=== PATIENT | male | born 1960 | race Caucasian/White ===

== ENCOUNTER 2016-12-11 05:43 | Day surgery (SDC) | payer MEDICAID ==
[2016-12-11] MEDS ORDERED: LIDOCAINE 1% 2 ML INJ ONE (06:02)
[2016-12-11] MEDS ORDERED: LR 1,000 ML IV ONE (06:24)
[2016-12-11] MEDS ORDERED: LIDOCAINE 1% 2 ML INJ ID PRN (06:24)
--- NOTE | 2016-12-11 06:51 | PDANEPAE ---
ANE History of Present Illness 56 year old male with Right Inguinal Hernia with preventive Left Inguinal Hernia Repair and Umbilical hernia. History of NIDDM on metformin and glipizide. Otherwise healthy. Denies Heart difficulties. 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 He cycles 10 miles per day. He has anesthesia in the past without complications. ANE Past Medical History - Cardiovascular History Hx Hypertension: Yes Hx Arrhythmias: No Hx Chest Pain: No Hx Coronary Artery / Peripheral Vascular Disease: No Hx CHF / Valvular Disease: No Hx Palpitations: No Cardiovascular History Comment: on Lisinopril for kidney perfusion - Pulmonary History Hx COPD: No Hx Asthma/Reactive Airway Disease: No Hx Recent Upper Respiratory Infection: No Hx Oxygen in Use at Home: No Hx Sleep Apnea: No Sleep Apnea Screening Result - Last Documented: Negative - Neurologic History Hx Cerebrovascular Accident: No Hx Seizures: No Hx Dementia: No - Endocrine History Hx Diabetes: Yes Obesity: yes, moderate Endocrine History Comment: NIDDM -stable HgbA1C 5.7 - Renal History Hx Renal Disorders: Yes Renal History Comment: hx kidney stones - Liver History Hx Hepatic Disorders: No - Neurological & Psychiatric Hx Hx Neurological and Psychiatric Disorders: No - Cancer History Hx Cancer: No - Congenital Disorder History Hx Congenital Disorders: No - GI History GERD: mild Hx Gastrointestinal Disorders: Yes Gastrointestinal History Comment: umbilical hernia- bilat inguinal hernias - Other Health History Other Health History: OA elbows - Chronic Pain History Chronic Pain: No - Surgical History Prior Surgeries: ureteroscopy (stent) kidney stone- 02-10-2016. kidney stone appro 2006. R ankle sx. hardware removal ANE Review of Systems - Exercise capacity METS (RN): 5 METS ANE Patient History - Allergies Allergies/Adverse Reactions: No Known Allergies Allergy (Verified 12/09/16 11:15) - Home Medications Home Medications: Aspirin [Aspirin 81mg (*)] 81 mg PO DAILY 02/10/16 [Last Taken 12/09/16] Metformin HCl [Metformin 1000 mg] 1,000 mg PO BID 02/10/16 [Last Taken 12/10/16 12:00] GLIPIZIDE 12/09/16 [Last Taken 12/10/16 12:00] Lisinopril 12/09/16 [Last Taken 12/10/16 12:00] Meloxicam 12/09/16 [Last Taken 12/09/16] Potassium Citrate 12/09/16 [Last Taken 12/10/16 12:00] - NPO status NPO Since - Liquids (Date): 12/10/16 NPO Since - Liquids (Time): 22:00 NPO Since - Solids (Date): 12/10/16 NPO Since - Solids (Time): 20:00 - Smoking Hx Smoking Status: Never smoked ANE Labs/Vital Signs - Vital Signs Blood Pressure: 117/85 Heart Rate: 66 Respiratory Rate: 20 O2 Sat (%): 95 Height: 177.8 cm Weight: 102.058 kg ANE Physical Exam - Airway Mallampati Score: Class 1 Mouth exam: poor dentition - Pulmonary Pulmonary: no respiratory distress - Cardiovascular Cardiovascular: regular rate and rhythym - ASA Status ASA Status: II ANE Anesthesia Plan Anesthesia Plan: general endotracheal anesthesia Urgent/Emergent Case: Antione santos completed preop but documented later for safe timely pt care
[2016-12-11] MEDS ORDERED: LIDOCAINE 1% 300 MG/30 ML SDV ONE (06:59)
[2016-12-11] MEDS ORDERED: BUPIVACAINE 0.5% 30 ML SDV ONE (07:00)
[2016-12-11] MEDS ORDERED: HYDROmorphONE/DILAUDID 2 MG/ML INJ ONE (07:02)
[2016-12-11] MEDS ORDERED: ONDANSETRON 4 MG/2 ML VIAL ONE (07:02)
[2016-12-11] MEDS ORDERED: DEXAMETHASONE 4 MG/ML VIAL ONE (07:02)
[2016-12-11] MEDS ORDERED: fentaNYL 100 MCG/2 ML INJ ONE ×2 (07:02→09:01)
[2016-12-11] MEDS ORDERED: ROCURONIUM 50 MG/5 ML VIAL ONE (07:02)
[2016-12-11] MEDS ORDERED: MIDAZOLAM 2 MG/2 ML VIAL ONE ×2 (07:03→07:10)
[2016-12-11] MEDS ORDERED: PROPOFOL 200 MG/20 ML VIAL ONE (07:03)
[2016-12-11] MEDS ORDERED: HYDROCODONE/APAP 5/325 TAB PO PRN (07:44)
[2016-12-11] MEDS ORDERED: METOCLOPRAMIDE 10 MG/2 ML VIAL IVP PRN (07:44)
[2016-12-11] MEDS ORDERED: NALOXONE HCL 0.4 MG/ML INJ IVP PRN (07:44)
[2016-12-11] MEDS ORDERED: LR 500 ML IV PRN (07:44)
[2016-12-11] MEDS ORDERED: HYDROmorphONE/DILAUDID 1 MG/ML SYR IVP PRN (07:44)
[2016-12-11] MEDS ORDERED: ONDANSETRON 4 MG/2 ML VIAL IVP PRN (07:44)
[2016-12-11] MEDS ORDERED: MEPERIDINE 25 MG/ML SYR IVP PRN (07:44)
[2016-12-11] MEDS ORDERED: oxyCODONE IR 5 MG TAB PO PRN (08:19)
--- NOTE | 2016-12-11 08:23 | POSTOPPROG ---
Post Op Note Date of Operation: 12/11/16 Surgeon: Lev Fierro Cable Armorer: none Anesthesiologist: Preeti Anesthesia: GET(General Endotracheal) Pre-op Diagnosis: RIH, umbilical hernia Post-op Diagnosis: b/L IH , umbilical hernia Procedure: lap TEP b/i IH repair with 3D max mesh, primary umbilical hernia repair Findings: direct inguinal herniae Inf/Abcess present in the surg proc area at time of surgery?: No EBL: Minimal Complications: none Specimen(s): none
--- NOTE | 2016-12-11 08:30 | SUROPNOTE ---
[facility] Operative Report - Surgery Date of procedure 12/11/2016 Indications for procedure: Mr. Hu is a 56-year-old gentleman who presents for elective repair of right inguinal hernia and umbilical hernia which had become mildly symptomatic he has had them for years. The patient has a history of diabetes hypertension sleep apnea and is here for elective repair. Preop diagnosis: Right inguinal hernia, umbilical hernia Postop diagnosis: Bilateral inguinal hernia, umbilical hernia Procedure: Bilateral TEP laparoscopic inguinal hernia repair with 3-D max mesh. Primary umbical hernia repair. Surgeon: Lev Fierro MD. Ticket Worker: None Anesthesiologist: Dr Álvarez IV fluids 1 L crystalloid Complications: None EBL: Minimal Specimens: None: Procedure: The patient was brought to the operating room after induction of endotracheal anesthesia his abdomen was prepped with chlorhexidine and draped sterilely. Time-out procedure was then performed according to institutional standards. Local anesthetic was infused at the umbilicus as well as trocar site bilateral field block 1% xylocaine 0.5% Marcaine 50 50 mix. Open preperitoneal dissection was performed with a balloon dissector in the standard fashion. The preperitoneal space was insufflated to 15 torr with carbon dioxide and working trocars were placed into the lower midline under direct visualization the preperitoneal spaces were cleared from the pubic tubercle to the anterior superior iliac spine on either side a large direct right inguinal hernia and a smaller left direct inguinal hernia were noted. 3D max was placed to interpose between the hernia defect and the peritoneum on either side without difficulty. The space was allowed to collapse under direct visualization with the mesh being in the appropriate places. Working trocars removed under direct visualization and the fascia was closed at the umbilical level using 0 Vicryl. Attention was then addressed to the umbilical hernia which through a separate fascial opening was cleared of investing peritoneum the incarcerated fat which was present in the hernia was reduced and reintroduced into the abdominal cavity. The fascia was then reapproximated using 2 [id number] sutures of 0 Ethibond suture. The umbilicus was tacked to the fascia using 0 Vicryl and the incisions were closed using 4 Monocryl buried interrupted suture. Dermabond was applied. The patient was awakened extubated taken to recovery room in stable condition no immediate complications. [place], instruments and sponges were accounted for times 2.
[2016-12-11] MEDS: fentaNYL 100 MCG/2 ML INJ IVP PRN ×2 (09:04→09:11)
[2016-12-11 11:14] VITALS: BP 137/68; PULSE 88; RESP 16; TEMP 98.1; O2SAT 96
--- NOTE | 2016-12-12 09:04 | POSTANESTH ---
Post Anesthetic Evaluation Cardiovascular Status: Normal, Stable Respiratory Status: Normal, Stable Level of Consciousness/Mental Status: Can Participate in Eval Pain Control: Adequate, Prn Tx Ordered Nausea/Vomiting Control: Adequate, Prn Tx Ordered Complications Possibly Related to Anesthesia: None Noted
== END 2016-12-11 10:26 | disposition home or self-care (01) ==
LOC: FSGY 05:43
PROVIDERS: ATTEND Surgery
PROC: 0YUA4JZ Supplement Bilateral Inguinal Region with Synthetic Substitute, Percutaneous Endoscopic Approach (ICD-10-PCS; principal; 2016-12-11 07:15)
PROC: 0WQF0ZZ Repair Abdominal Wall, Open Approach (ICD-10-PCS; principal; 2016-12-11 07:15)
DX: K40.20 Bilateral inguinal hernia, without obstruction or gangrene, not specified as recurrent (principal); K42.9 Umbilical hernia without obstruction or gangrene; E11.9 Type 2 diabetes mellitus without complications; N28.9 Disorder of kidney and ureter, unspecified; I10 Essential (primary) hypertension; G47.30 Sleep apnea, unspecified; Z87.442 Personal history of urinary calculi
CPT/HCPCS: 49585; 49650; C1727; C1781; J1100; J1170; J2250; J2405; J2704; J3010